=== PATIENT | female | born 1970 | race American Indian/Alaskan Native ===

== ENCOUNTER 2016-08-16 01:23 | Emergency (ER) | payer MEDICAID ==
[2016-08-16 01:52] VITALS: BP 127/91
[2016-08-16] MEDS ORDERED: NORCO 10/325 PO ONE (04:24)
[2016-08-16] MEDS ORDERED: PHENERGAN PO ONE (04:24)
--- NOTE | 2016-08-16 06:03 | Emergency Department Report ---
HPI - General Chief Complaint: Back Pain/Injury Time Seen by Provider: 08/16/16 04:27 - HPI HPI: 46F PMH rheumatoid arthritis presents with complaint of acute on chronic right hip pain. Patient states she also had slip and fall at home 4 days ago which triggered her right hip pain. Patient is ambulatory, states she ran out of her pain medicine she typically takes at home. Has follow-up with pain management next week as per patient. States pain is currently 8 out of 10, limping on right leg. Denies any other injury denies any other new symptoms denies any fever or chills. States she feels mildly nauseous. She has been taking her pain medicine which induces nausea. ED Past Medical Hx - Past Medical History Previous Medical History?: Yes Hx Hypertension: Yes Hx Arthritis: Yes Additional medical history: IBS, GASTRITIS, PNEUMONIA (2012) - Surgical History Past Surgical History?: Yes Additional Surgical History: TUBAL LIGATION. hystoscopy, endometrial ablation 06/15/2014 - Social History Smoking Status: Light Tobacco Smoker Substance Use Type: None - Medications Home Medications: Home Medications Medication Instructions Recorded Confirmed Last Taken Type Lisinopril/Hydrochlorothiazide 1 tab PO DAILY 05/16/13 11/14/14 1 Day Ago History [Zestoretic 20-25 mg] HYDROcodone/ACETAMINOPHEN 1 each PO Q8H #15 tablet 06/26/14 11/14/14 2 Days Ago Rx [Hydrocodon-Acetaminophn 10-325] Diazepam Tab 10 mg PO BID 11/14/14 11/14/14 3 Weeks Ago History Famotidine [Pepcid] 20 mg PO BID #20 tablet 11/14/14 Unknown Rx Hyoscyamine Subl [Levsin Sl] 0.125 mg SL Q6HR PRN #14 tablet 11/14/14 Unknown Rx Promethazine [Phenergan] 25 mg PO Q6H PRN #10 tablet 11/14/14 Unknown Rx Stadol Nasal [place] 2 sprays INTRANASAL DAILY 11/14/14 11/14/14 3 Weeks Ago History oxyCODONE [Roxicodone TAB] 5 mg PO Q6H PRN #16 tablet 03/17/15 Unknown Rx Cyclobenzaprine HCl [Flexeril 5 MG 5 mg PO TID PRN #9 tab 08/16/16 Unknown Rx TAB] HYDROcodone/APAP 5-325 [[place] 1 each PO Q6HR PRN #9 tablet 08/16/16 Unknown Rx 5/325] Promethazine [Phenergan TAB] 25 mg PO Q8HR PRN #9 tab 08/16/16 Unknown Rx ED Review of Systems ROS: Stated complaint: BACK/HIP PAIN Other details as noted in HPI Constitutional: denies: chills, fever Eyes: denies: eye pain, eye discharge, vision change ENT: denies: ear pain, throat pain Respiratory: denies: cough, shortness of breath, wheezing Cardiovascular: denies: chest pain, palpitations Endocrine: no symptoms reported Gastrointestinal: denies: abdominal pain, nausea, diarrhea Genitourinary: denies: urgency, dysuria, discharge Musculoskeletal: denies: back pain, joint swelling, arthralgia Skin: denies: rash, lesions Neurological: denies: headache, weakness, paresthesias Psychiatric: denies: anxiety, depression Hematological/Lymphatic: denies: easy bleeding, easy bruising Physical Exam - Physical Exam Vital Signs: Vital Signs 08/16/16 01:48 Temperature 98.0 F Pulse Rate 78 Blood Pressure 127/91 O2 Sat by Pulse 100 Oximetry General: General: Well appearing, well nourished, in no distress. Oriented x 3, normal mood and affect . Ambulating without difficulty. Head: Normocephalic, atraumatic, no visible or palpable masses, depressions, or scaring. Eyes: Visual acuity intact, conjunctiva clear, sclera non-icteric, EOM intact, PERRLA Ears: EACs clear, TMs translucent & mobile, ossicles nl appearance, hearing intact. Neck: Supple, without lesions, bruits, or adenopathy, thyroid non-enlarged and non-tender Heart: No cardiomegaly or thrills; regular rate and rhythm, no murmur or gallop Lungs: Clear to auscultation and percussion Abdomen: Bowel sounds normal, no tenderness, organomegaly, masses, or hernia Back: Spine normal without deformity or tenderness, no CVA tenderness Extremities: No amputations or deformities, cyanosis, edema or varicosities, peripheral pulsesintact Musculoskeletal: Antalgic and station. No misalignment, asymmetry, crepitation, defects,tenderness, masses, effusions, decreased range of motion, instability, atrophy or abnormal strength or tone in the head, neck, spine, ribs, pelvis or extremities. Neurologic: CN 2-12 normal. ED Course Vital Signs 08/16/16 01:48 Temperature 98.0 F Pulse Rate 78 Blood Pressure 127/91 O2 Sat by Pulse 100 Oximetry ED Medical Decision Making - Medical Decision Making A/P: Chronic hip pain 1-patient follow-up with primary medical doctor and pain management, will refer to orthopedics 2-will give patient very short course of [place]. will give phenergen as pt claims to be allergic to zofran. 3-I informed patient that I'll only give very short course of medicine for her pain and that she cannot depend on ED for refilling her chronic pain medicine 4- patient fully ambulatory upon discharge, significant relief of pain Critical care attestation.: If time is entered above; I have spent that time in minutes in the direct care of this critically ill patient, excluding procedure time. ED Disposition Clinical Impression: Hip pain Qualifiers: Laterality: right Qualified Code(s): M25.551 - Pain in right hip Disposition: DISCHARGED TO HOME OR SELFCARE Is pt being admited?: No Does the pt Need Aspirin: No Condition: Stable Instructions: Rheumatoid Arthritis (ED), Arthralgia (ED) Prescriptions: Cyclobenzaprine HCl [Flexeril 5 MG TAB] 5 mg PO TID PRN #9 tab PRN Reason: Muscle Spasm HYDROcodone/APAP 5-325 [[place] 5/325] 1 each PO Q6HR PRN #9 tablet PRN Reason: Pain Promethazine [Phenergan TAB] 25 mg PO Q8HR PRN #9 tab PRN Reason: Nausea Referrals: PRIMARY MD CAL [Primary Care Provider] - 3-5 Days CHRISTOPHER ESCOBEDO MD [Staff Physician] - 3-5 Days KARRI MONET MD [Staff Physician] - 3-5 Days [facility] [Outside] - 3-5 Days Forms: Work/School Release Form(ED)
--- NOTE | 2016-08-16 07:42 | XRay Report ---
RIGHT HIP: The bony architecture is intact without evidence of fracture or dislocation. No significant soft tissue abnormality is seen. Of incidental note are fallopian tube stents both of which are in the right hemipelvis raising the possibility of one being displaced. IMPRESSION: Normal right hip.
== END 2016-08-16 06:15 | disposition home or self-care (01) ==
LOC: ED 01:23
DX: M25.551 Pain in right hip (principal); I10 Essential (primary) hypertension; F17.200 Nicotine dependence, unspecified, uncomplicated; Z98.51 Tubal ligation status
CPT/HCPCS: 99283; Q0169

== ENCOUNTER 2020-03-22 21:53 | Emergency (ER) | payer MEDICAID | END 2020-03-22 22:05 | disposition left against medical advice (07) | LOC: ED 21:53 | DX: K08.89 Other specified disorders of teeth and supporting structures (principal); Z53.21 Procedure and treatment not carried out due to patient leaving prior to being seen by health care provider ==

== ENCOUNTER 2021-03-14 09:24 | Emergency (ER) | payer MEDICAID ==
[2021-03-14 09:36] VITALS: BP 112/67
== END 2021-03-14 12:03 | disposition left against medical advice (07) ==
LOC: ED 09:24
DX: S09.90XA Unspecified injury of head, initial encounter (principal); Z53.21 Procedure and treatment not carried out due to patient leaving prior to being seen by health care provider; X58.XXXA Exposure to other specified factors, initial encounter; Y93.89 Activity, other specified; Y92.89 Other specified places as the place of occurrence of the external cause; Y99.8 Other external cause status

== ENCOUNTER 2021-06-21 14:44 | Emergency (ER) | payer MEDICAID ==
[2021-06-21 14:58] VITALS: BP 114/79
[2021-06-21] MEDS ORDERED: HYDROmorphone 1 MG/1 ML INJ IV ONE (15:15)
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
== END 2021-06-21 17:31 | disposition home or self-care (01) ==
LOC: ED 14:44
DX: T23.221A Burn of second degree of single right finger (nail) except thumb, initial encounter (principal); T23.101A Burn of first degree of right hand, unspecified site, initial encounter; M13.80 Other specified arthritis, unspecified site; I10 Essential (primary) hypertension; Z88.6 Allergy status to analgesic agent; X08.8XXA Exposure to other specified smoke, fire and flames, initial encounter; Y93.89 Activity, other specified; Y92.89 Other specified places as the place of occurrence of the external cause; Y99.8 Other external cause status
CPT/HCPCS: 16020; 96374; 99283; J1170